=== PATIENT | male | born 1940 | race Caucasian/White ===

== ENCOUNTER 2020-04-07 05:28 | Day surgery (SDC) | payer MEDICARE, BC ==
[2020-04-01 14:28] LABS: BASOPHILS # (AUTO) 0.1 X10'3 (0-0.2); EOSINOPHILS # (AUTO) 0.4 X10'3 (0-0.9); LYMPHOCYTES # (AUTO) 1.6 X10'3 (1.1-4.8); NEUTROPHILS # (AUTO) 3.6 X10'3 (1.8-7.7)
[2020-04-01 14:29] LABS: BASOPHILS % (AUTO) 1.7 % (0-1); EOSINOPHILS % (AUTO) 6.7 % (0-6); LYMPHOCYTES % (AUTO) 24.5 % (21-51); MEAN CORPUSCULAR HEMOGLOBIN 33.6 PG (27.0-31.0); MEAN CORPUSCULAR HGB CONC 33.6 g/dL (33.0-36.5); MEAN PLATELET VOLUME 8.8 FL (7.4-10.4); MONOCYTES # (AUTO) 0.6 X10'3 (0-0.9); NEUTROPHILS % (AUTO) 57.1 % (42-75); PRE OP HEMATOCRIT 43.2 % (42.0-52.0); PRE OP HEMOGLOBIN 14.5 g/dL (14.0-17.9); PRE OP PLATELET COUNT 227 X10'3 (140-440); RED BLOOD COUNT 4.32 X10'6 (4.70-6.10); RED CELL DISTRIBUTION WIDTH 13.5 % (11.5-14.5)
[2020-04-01 14:37] LABS: PRE OP PROTIME 10.3 SECONDS (9.0-12.0)
[2020-04-01 14:47] LABS: ALBUMIN 3.9 G/DL (3.4-5.0); ALBUMIN/GLOBULIN RATIO 1.4 (1.1-1.5); ALKALINE PHOSPHATASE 124 IU/L (46-116); BLOOD UREA NITROGEN 27 MG/DL (7-18); BUN/CREATININE RATIO 13.7 (5.4-32.0); CALCIUM 9.5 MG/DL (8.5-10.1); CHLORIDE 108 MMOL/L (99-107); CREATININE 1.97 MG/DL (0.60-1.10); PRE OP ALT 31 U/L (30-65); PRE OP ANION GAP 4 (8-16); PRE OP AST 29 U/L (10-37); PRE OP BILIRUB, TOTAL 0.4 MG/DL (0.0-1.0); PRE OP POTASSIUM 4.8 MMOL/L (3.4-5.1); PRE OP SODIUM 141 MMOL/L (135-145); TOTAL CARBON DIOXIDE 28.8 MMOL/L (24-32); TOTAL PROTEIN 6.7 G/DL (6.4-8.2); eGFR 33 ML/MIN
[2020-04-01 14:52] LABS: PRE OP GLUCOSE 237 MG/DL (70-104)
[2020-04-01 15:00] LABS: HEMOGLOBIN A1C 7.7 % (4.5-6.2)
[~2020-04-07] VITALS: Ht 177.8 cm; Wt 83.1 kg
[~2020-04-07 05:28] MED LIST: ACET-2119 PO; FENO135C PO; GLIM4TAB7 PO; IBUP-1984 PO; LISI-222 PO; LORA10CA PO; MAGN500C16 PO; OMEP-84 PO; PIOG15TA8 PO; PRAV40TA65 PO; SITA100T11 PO; SYN0.0125T PO; ringers solution, lacted 1,000 ML IV SCH
[2020-04-07] MEDS ORDERED: cefazolin/dext.iso 2gm/50ml 50 ML IV ONE (05:30)
[2020-04-07] MEDS ORDERED: famotidine 20mg tablet PO ONE (05:30)
[2020-04-07] MEDS ORDERED: LIDOcaine 1% (10mg/ml) 2ml vial ONE (05:43)
[2020-04-07 06:44] VITALS: BP 151/91
[2020-04-07 06:49] VITALS: BP 151/91
--- NOTE | 2020-04-07 07:00 | NUR ---
PT UP TO BR, IV DISLODGED. RESTARTED IN R WRIST WITH #20
[2020-04-07] MEDS ORDERED: MIDAZolam 5mg/5ml vial ONE (07:09)
[2020-04-07] MEDS ORDERED: fentaNYL /PF 50mcg/ml 5ml ampule ONE (07:10)
[2020-04-07] MEDS ORDERED: dexamethasone sod phosphate 4mg/ml inj. ONE (07:10)
[2020-04-07] MEDS ORDERED: rocuronium 10mg/ml inj IV ONE (07:10)
[2020-04-07] MEDS ORDERED: ondansetron/PF 4mg/2ml inj ONE (07:10)
[2020-04-07] MEDS ORDERED: LIDOcaine 2% (20mg/ml) 5ml vial ONE (07:11)
[2020-04-07] MEDS ORDERED: propofol inj 20 ML IV ONE (07:11)
--- NOTE | 2020-04-07 07:12 | NUR ---
SMALL RASH R LUMBAR BACK, DR PEREZ AWARE
--- NOTE | 2020-04-07 07:13 | NUR ---
STRONG EQUAL PUSH PULL BILATERAL FEET. NO NUMBNESS, ONLY PAIN IN BACK AND DOWN R THIGH
[2020-04-07] MEDS ORDERED: ringers solution, lacted 1,000 ML IV SCH (07:16)
[2020-04-07] MEDS ORDERED: morphine 4 MG/ML inj SYRINge IV PRN (07:20)
[2020-04-07] MEDS ORDERED: ondansetron/PF 4mg/2ml inj IV PRN (07:20)
[2020-04-07] MEDS ORDERED: labetalol 20mg/4ml (5mg/ml) syringe IV PRN (07:20)
[2020-04-07] MEDS ORDERED: fentaNYL/PF 50MCG/1 ML 2ML syringe IV PRN ×2 (07:20)
[2020-04-07] MEDS ORDERED: morphine 2 MG/ML inj. syringe IV PRN (07:20)
[2020-04-07] MEDS ORDERED: hydrALAZINE 20mg/ml inj. IV PRN (07:20)
--- NOTE | 2020-04-07 08:10 | NUR ---
SURG CANCELED DUE TO SMALL RASH R LOWER BACK. PTS IV D/C'D INTACT. PT DRESSED AND WALKED TO CAR OUTSIDE LOBBY, TO . 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 ALL BELONGING HOME WITH PT
== END 2020-04-07 08:10 | disposition home or self-care (01) ==
LOC: PAS 05:28
PROVIDERS: ATTEND Orthopaedic Surgery
DX: M48.07 Spinal stenosis, lumbosacral region (principal); Z53.8 Procedure and treatment not carried out for other reasons; M43.16 Spondylolisthesis, lumbar region; M19.90 Unspecified osteoarthritis, unspecified site; E03.9 Hypothyroidism, unspecified; K21.9 Gastro-esophageal reflux disease without esophagitis; I12.9 Hypertensive chronic kidney disease with stage 1 through stage 4 chronic kidney disease, or unspecified chronic kidney disease; E11.22 Type 2 diabetes mellitus with diabetic chronic kidney disease; N18.9 Chronic kidney disease, unspecified; Z11.59 Encounter for screening for other viral diseases; Z98.890 Other specified postprocedural states; Z79.899 Other long term (current) drug therapy; Z90.49 Acquired absence of other specified parts of digestive tract; Z79.84 Long term (current) use of oral hypoglycemic drugs
CPT/HCPCS: 36415; 80053; 82948; 83036; 84443; 85025; 85610; 85730; J1100; J2001; J2250; J2405; J2704; J3010; U0003; J7120

== ENCOUNTER 2020-06-09 05:32 | Day surgery (SDC) | payer MEDICARE, BC ==
[2020-05-30 10:58] LABS: BASOPHILS # (AUTO) 0.1 X10'3 (0-0.2); BASOPHILS % (AUTO) 1.4 % (0-1); EOSINOPHILS # (AUTO) 0.7 X10'3 (0-0.9); EOSINOPHILS % (AUTO) 8.3 % (0-6); LYMPHOCYTES # (AUTO) 1.9 X10'3 (1.1-4.8); LYMPHOCYTES % (AUTO) 23.4 % (21-51); MEAN CORPUSCULAR HEMOGLOBIN 33.8 PG (27.0-31.0); MEAN CORPUSCULAR HGB CONC 33.6 g/dL (33.0-36.5); MEAN CORPUSCULAR VOLUME 100.5 FL (78-98); MEAN PLATELET VOLUME 9.2 FL (7.4-10.4); MONOCYTES # (AUTO) 0.8 X10'3 (0-0.9); MONOCYTES % (AUTO) 10.6 % (2-12); NEUTROPHILS # (AUTO) 4.5 X10'3 (1.8-7.7); NEUTROPHILS % (AUTO) 56.3 % (42-75); PRE OP HEMATOCRIT 44.8 % (42.0-52.0); PRE OP HEMOGLOBIN 15.1 g/dL (14.0-17.9); PRE OP PLATELET COUNT 234 X10'3 (140-440); RED BLOOD COUNT 4.46 X10'6 (4.70-6.10); RED CELL DISTRIBUTION WIDTH 14.1 % (11.5-14.5)
[2020-05-30 11:10] LABS: PRE OP PROTIME 10.3 SECONDS (9.0-12.0)
[2020-05-30 11:14] LABS: ALBUMIN/GLOBULIN RATIO 1.3 (1.1-1.5); ALKALINE PHOSPHATASE 105 IU/L (46-116); BLOOD UREA NITROGEN 25 MG/DL (7-18); BUN/CREATININE RATIO 13.4 (5.4-32.0); CALCIUM 9.9 MG/DL (8.5-10.1); CHLORIDE 104 MMOL/L (99-107); CREATININE 1.87 MG/DL (0.60-1.10); PRE OP ALT 32 U/L (30-65); PRE OP ANION GAP 9 (8-16); PRE OP AST 27 U/L (10-37); PRE OP BILIRUB, TOTAL 0.5 MG/DL (0.0-1.0); PRE OP GLUCOSE 181 MG/DL (70-104); PRE OP POTASSIUM 4.4 MMOL/L (3.4-5.1); PRE OP SODIUM 138 MMOL/L (135-145); TOTAL CARBON DIOXIDE 24.7 MMOL/L (24-32); TOTAL PROTEIN 7.2 G/DL (6.4-8.2); eGFR 35 ML/MIN
[2020-06-09] VITALS (10 sets, daily range): BP systolic 130–148; BP diastolic 62–86
[~2020-06-09] VITALS: Ht 177.8 cm; Wt 82.0 kg
[~2020-06-09 05:32] MED LIST changes: -IBUP-1984 PO; -LORA10CA PO; +ceFAZolin 2gm in dextrose, iso 50 ML IV ONE; +famotidine 20mg tablet PO ONE
[2020-06-09] MEDS ORDERED: LIDOcaine 1% (10mg/ml) 2ml vial ONE (06:40)
[2020-06-09] MEDS ORDERED: fentaNYL /PF 50mcg/ml 5ml ampule ONE (07:18)
[2020-06-09] MEDS ORDERED: sevoflurane 250ml liquid IH ONE (07:24)
[2020-06-09] MEDS ORDERED: ringers solution, lacted 1,000 ML IV SCH (07:28)
[2020-06-09] MEDS ORDERED: HYDROmorphone inj. 0.5 MG/0.5 ML DISP.SYRIN IV PRN ×2 (07:30)
[2020-06-09] MEDS ORDERED: morphine 2 MG/ML inj. syringe IV PRN (07:30)
[2020-06-09] MEDS ORDERED: ondansetron/PF 4mg/2ml inj IV PRN (07:30)
[2020-06-09] MEDS ORDERED: BUPIVACAINE liposomal/PF 13.3 MG/ML vial IM ONE ×2 (09:13→09:39)
[2020-06-09] MEDS ORDERED: triamcinolone acetonide 40mg/ml inj ONE (09:38)
--- NOTE | 2020-06-09 10:16 | NUR ---
Received from OR via , accompanied by Anesthesiologist DR GALINDO and report given by Anesthesiolgist. AWAKENS TO VOCIE. VITALS STABLE. DRESSING DI. DENA PAIN. MOVES ALL EXTERITIES.
[2020-06-09] MEDS ORDERED: propofol inj 20 ML IV ONE (10:48)
[2020-06-09] MEDS ORDERED: glycopyrrolate 0.2mg/ml inj ONE (10:48)
[2020-06-09] MEDS ORDERED: ondansetron/PF 4mg/2ml inj ONE (10:48)
[2020-06-09] MEDS ORDERED: LIDOcaine 2% (20mg/ml) 5ml vial ONE (10:48)
[2020-06-09] MEDS ORDERED: neostigmine methylsulfate 1 MG/ML 10ml vial ONE (10:48)
[2020-06-09] MEDS ORDERED: rocuronium 10mg/ml inj IV ONE (10:48)
--- NOTE | 2020-06-09 12:06 | NUR ---
AWAKE AND ORIENTED. VITALS STABLE. DRESSING DI. STATES TOLERABLE DISCOMFORT TO BACK. BRACE PLACED PER MD WHEN OUT OF BED. HOME WITH HIS SPOUSE AT THIS TIME.
== END 2020-06-09 12:06 | disposition home or self-care (01) ==
LOC: PAS 05:32 → UNDOADMIN 05:35 → PAS IN 05:35 → UNDODISIN 12:06 → PAS IN 12:06
PROVIDERS: ATTEND Orthopaedic Surgery
DX: M48.061 Spinal stenosis, lumbar region without neurogenic claudication (principal); M47.26 Other spondylosis with radiculopathy, lumbar region; M54.5 Low back pain; Z20.828 Contact with and (suspected) exposure to other viral communicable diseases; Z79.899 Other long term (current) drug therapy; B02.9 Zoster without complications; I10 Essential (primary) hypertension
CPT/HCPCS: 36415; 72100; 76000; 80053; 82948; 84443; 85025; 85610; 85730; A4215; A4618; A6253; A6258; A6402; A6449; A7000; C1758; C9290; J2001; J2270; J2405; J2704; J2710; J3010; J3301; J3490; J7050; J7120

== ENCOUNTER 2021-08-28 09:21 | Day surgery (SDC) | payer MEDICARE ==
[2021-08-23 10:40] LABS: BASOPHILS # (AUTO) 0.1 X10'3 (0-0.2); BASOPHILS % (AUTO) 1.3 % (0-1); EOSINOPHILS # (AUTO) 0.3 X10'3 (0-0.9); EOSINOPHILS % (AUTO) 3.3 % (0-6); LYMPHOCYTES # (AUTO) 2.1 X10'3 (1.1-4.8); LYMPHOCYTES % (AUTO) 25.5 % (21-51); MEAN CORPUSCULAR HEMOGLOBIN 35.2 PG (27.0-31.0); MEAN CORPUSCULAR HGB CONC 34.2 g/dL (33.0-36.5); MEAN CORPUSCULAR VOLUME 103.1 FL (78-98); MEAN PLATELET VOLUME 8.5 FL (7.4-10.4); MONOCYTES # (AUTO) 0.9 X10'3 (0-0.9); MONOCYTES % (AUTO) 10.8 % (2-12); NEUTROPHILS # (AUTO) 4.8 X10'3 (1.8-7.7); NEUTROPHILS % (AUTO) 59.1 % (42-75); PRE OP HEMATOCRIT 42.3 % (42.0-52.0); PRE OP HEMOGLOBIN 14.4 g/dL (14.0-17.9); PRE OP PLATELET COUNT 246 X10'3 (140-440); RED CELL DISTRIBUTION WIDTH 15.4 % (11.5-14.5)
[2021-08-23 11:01] LABS: ALBUMIN 3.8 G/DL (3.4-5.0); ALBUMIN/GLOBULIN RATIO 1.2 (1.1-1.5); ALKALINE PHOSPHATASE 136 IU/L (46-116); BLOOD UREA NITROGEN 27 MG/DL (7-18); BUN/CREATININE RATIO 15.2 (5.4-32.0); CALCIUM 10.4 MG/DL (8.5-10.1); CHLORIDE 102 MMOL/L (99-107); CREATININE 1.78 MG/DL (0.60-1.10); PRE OP ALT 40 U/L (30-65); PRE OP ANION GAP 6 (8-16); PRE OP AST 26 U/L (10-37); PRE OP BILIRUB, TOTAL 0.4 MG/DL (0.0-1.0); PRE OP POTASSIUM 4.6 MMOL/L (3.4-5.1); PRE OP SODIUM 136 MMOL/L (135-145); TOTAL CARBON DIOXIDE 27.6 MMOL/L (24-32); eGFR 37 ML/MIN
[2021-08-23 11:05] LABS: PRE OP GLUCOSE 340 MG/DL (70-104)
[2021-08-23 11:28] LABS: HEMOGLOBIN A1C 9.6 % (4.5-6.2)
[2021-08-28] VITALS (7 sets, daily range): BP systolic 101–124; BP diastolic 59–81
[~2021-08-28] VITALS: Ht 177.8 cm; Wt 81.6 kg
[~2021-08-28 09:21] MED LIST changes: +BUPIVAcaine/PF 2.5 mg/ml (0.25%) 30ml vial ONE; +FURO-149 PO; +LIDOcaine 1% 30ml preserv. free vial ONE; +POTA-192 PO
[2021-08-28] MEDS ORDERED: fentaNYL/PF 50MCG/1 ML 2ML syringe ONE (10:36)
--- NOTE | 2021-08-28 10:55 | NUR ---
PT ARRIVED TO RECOVERY ROOM WITH DR WILSON-ANESTHESIA REPORT GIVEN, PT AWAKE, VSS, DENIES PAIN, RIGHT HAND-DSRG CDI, CSM INTACT, PIV LEFT HAND 20G, ICE APPLIED TO RIGHT HAND
[2021-08-28] MEDS ORDERED: morphine 4 MG/ML inj SYRINge IV PRN (11:00)
[2021-08-28] MEDS ORDERED: ringers solution, lacted 1,000 ML IV SCH (11:00)
[2021-08-28] MEDS ORDERED: proCHLORperazine 10 MG/2 ml inj IV PRN (11:00)
[2021-08-28] MEDS ORDERED: meperidine/PF 25mg/ml syringe IV PRN ×3 (11:00)
[2021-08-28] MEDS ORDERED: morphine 2 MG/ML inj. syringe IV PRN (11:00)
[2021-08-28] MEDS ORDERED: ondansetron/PF 4mg/2ml inj IV PRN (11:00)
--- NOTE | 2021-08-28 12:05 | NUR ---
ALL DISCHARGE CRITERIA HAS BEEN MET. VSS, DENIES PAIN, RIGHT WRIST DRSG-CDI, CSM-INTACT, ABLE TO SAFELY AMBULATE AND TRANSFER SELF. IV TAKEN OUT WITHOUT ANY COMPLICATIONS. ALL DISCHARGE INSTRUCTIONS COVERED WITH PATIENT AND ALL QUESTIONS ANSWERED. PATIENT TAKEN OUT WITH ALL BELONGINGS VIA WHEELCHAIR TO PERSONAL VEHICLE WHERE FAMILY DROVE PATIENT HOME.
== END 2021-08-28 12:05 | disposition home or self-care (01) ==
LOC: PAS 09:21
PROVIDERS: ATTEND Orthopaedic Surgery Hand Surgery
DX: G56.01 Carpal tunnel syndrome, right upper limb (principal); M19.049 Primary osteoarthritis, unspecified hand; M18.12 Unilateral primary osteoarthritis of first carpometacarpal joint, left hand; K21.9 Gastro-esophageal reflux disease without esophagitis; E03.9 Hypothyroidism, unspecified; E10.22 Type 1 diabetes mellitus with diabetic chronic kidney disease; I12.9 Hypertensive chronic kidney disease with stage 1 through stage 4 chronic kidney disease, or unspecified chronic kidney disease; N18.9 Chronic kidney disease, unspecified; Z79.899 Other long term (current) drug therapy; Z20.822 Contact with and (suspected) exposure to COVID-19; Z98.890 Other specified postprocedural states; Z90.49 Acquired absence of other specified parts of digestive tract
CPT/HCPCS: 36415; 64721; 80053; 82948; 83036; 85025; 93005; J2001; J3010; J3490; U0003; U0005; Z7506; Z7512; A4215; J7120

== ENCOUNTER 2022-10-17 19:29 | Emergency (ER) | payer MEDICARE ==
[~2022-10-17] VITALS: Ht 177.8 cm; Wt 77.5 kg
[~2022-10-17 19:29] MED LIST changes: -BUPIVAcaine/PF 2.5 mg/ml (0.25%) 30ml vial ONE; -LIDOcaine 1% 30ml preserv. free vial ONE; -MAGN500C16 PO; +MAGN500C4 PO; -ceFAZolin 2gm in dextrose, iso 50 ML IV ONE; -famotidine 20mg tablet PO ONE; -ringers solution, lacted 1,000 ML IV SCH
[2022-10-17 19:49] LABS: BASOPHILS # (AUTO) 0.1 X10'3 (0-0.2); EOSINOPHILS # (AUTO) 0.1 X10'3 (0-0.9); EOSINOPHILS % (AUTO) 1.5 % (0-6); MONOCYTES # (AUTO) 1.5 X10'3 (0-0.9); RED BLOOD COUNT 4.29 X10'6 (4.70-6.10); RED CELL DISTRIBUTION WIDTH 15.3 % (11.5-14.5)
[2022-10-17 19:51] LABS: BASOPHILS % (AUTO) 0.7 % (0-1); HEMATOCRIT 42.4 % (42.0-52.0); HEMOGLOBIN 14.5 g/dl (14.0-17.9); LYMPHOCYTES # (AUTO) 1.5 X10'3 (1.1-4.8); LYMPHOCYTES % (AUTO) 16.5 % (21-51); MEAN CORPUSCULAR HEMOGLOBIN 33.9 PG (27.0-31.0); MEAN CORPUSCULAR HGB CONC 34.3 g/dL (33.0-36.5); MEAN PLATELET VOLUME 8.2 FL (7.4-10.4); MONOCYTES % (AUTO) 16.1 % (2-12); NEUTROPHILS # (AUTO) 5.9 X10'3 (1.8-7.7); NEUTROPHILS % (AUTO) 65.2 % (42-75); PLATELET COUNT 355 X10'3 (140-440); WHITE BLOOD COUNT 9.1 X10'3 (4.5-11.0)
[2022-10-17 20:09] LABS: ALBUMIN 3.2 G/DL (3.4-5.0); ANION GAP 8 (8-16); BILIRUBIN,TOTAL 0.6 MG/DL (0.1-1.0); BLOOD UREA NITROGEN 28 MG/DL (7-18); BUN/CREATININE RATIO 13.4 (5.4-32.0); CALCIUM 9.9 MG/DL (8.5-10.1); CHLORIDE 100 MMOL/L (99-107); CREATININE 2.09 MG/DL (0.60-1.10); GLUCOSE 165 MG/DL (70-104); POTASSIUM 4.7 MMOL/L (3.5-5.1); SODIUM 135 MMOL/L (135-145); TOTAL CARBON DIOXIDE 27.1 MMOL/L (24-32); TOTAL PROTEIN 7.2 G/DL (6.4-8.2); eGFR 30 ML/MIN
[2022-10-17 20:10] LABS: ALANINE AMINOTRANSFERASE 41 U/L (12-78); ALBUMIN/GLOBULIN RATIO 0.8 (1.1-1.5); ALKALINE PHOSPHATASE 79 IU/L (46-116); ASPARTATE AMINO TRANSFERASE 49 U/L (10-37)
[2022-10-17 21:06] LABS: TOTAL CELLS COUNTED 100
[2022-10-17 21:10] LABS: PLATELET ESTIMATE NORMAL
[2022-10-17 21:11] LABS: ELLIPTOCYTES FEW
[2022-10-17 21:47] VITALS: BP 124/71
== END 2022-10-18 01:43 | disposition left against medical advice (07) ==
LOC: ER 19:32
DX: R06.02 Shortness of breath (principal); Z53.21 Procedure and treatment not carried out due to patient leaving prior to being seen by health care provider
CPT/HCPCS: 36415; 71045; 80053; 83735; 83880; 84484; 85007; 85025; 93005